=== PATIENT | female | born 1955 | race Caucasian/White ===

== ENCOUNTER 2025-07-01 10:15 | Outpatient (CLI) | payer MEDICARE, OTHER ==
--- NOTE | 2025-07-03 08:13 | RADIOLOGY REPORT ---
EXAM: MR MRI LUMBAR SPINE CLINICAL HISTORY: SPONDYLOSIS W/O MYELOPATHY OR RADICULOPATHY, LUMBAR REGION COMPARISON: None TECHNIQUE: MRI imaging of the lumbar was performed on a MRI imaging system without intravenous contrast. FINDINGS: GENERAL: Lumbar lordosis is straightened. CONUS: Conus medullaris terminates at the L1 level, demonstrates normal signal. CAUDA EQUINA: Unremarkable. OSSEOUS STRUCTURES: Deformities of the vertebral bodies T12 and L4. Anterior and mid-vertebral height loss is noted at T12 ( 30%) and L4 ( 36%). No bone- marrow edema is identified. Differential diagnosis includes chronic compression fracture versus degenerative collapse of the vertebral endplates. Marginal endplate osteophytic spurring is noted at T11-T12, T12-L1, L1-L2, L2-L3, L3-L4, L4-L5 and L5-S1. ALIGNMENT: Anterolisthesis of L5 on S1 by 3.0mm. BONE MARROW: Fatty marrow replacement. Endplate irregularity is noted at T11- T12 and L3-L4. Modic I changes at T11-12. PARASPINAL SOFT TISSUES: Minimal posterior subcutaneous fat edema. DISCS: Disc desiccation at T11-T12, L2-L3, L3-L4, L4-L5 and L5-S1. Unremarkable disc heights. T12-L1: No spinal canal or neural foraminal stenosis. Mild facet arthrosis. L1-2: No spinal canal or neural foraminal stenosis. Mild facet arthrosis. L2-3: 3mm diffuse disc bulge. No spinal canal or neural foraminal stenosis. Moderate facet arthrosis. L3-4: 4mm diffuse disc bulge. Mild spinal canal stenosis. Mild bilateral foraminal stenosis. Moderate facet arthrosis. L4-5: 3.5mm diffuse disc bulge. Moderate spinal canal stenosis. Mild bilateral foraminal stenosis. Severe facet arthrosis. L5-S1: No spinal canal or neural foraminal stenosis. Severe facet arthrosis. A cystic lesion is seen at the edge of the scan in the pelvic cavity without definite organ attribution. Recommend dedicated pelvic MRI with contrast. IMPRESSION: 1. Chronic compression fractures or degenerative collapse with anterior and mid- vertebral height loss at T12 ( 30%) and L4 ( 36%); Modic I changes at T11-T12. 2. Moderate spinal canal stenosis at L4-L5. 3. Mild spinal canal stenosis at L3-L4. 4. Anterolisthesis of L5 on S1 by 3.0 mm. 5. Indeterminate cystic lesion in the pelvic cavity; recommend dedicated pelvic MRI with contrast for further evaluation.
== END 2025-07-01 23:59 | disposition home or self-care (01) ==
LOC: MRI02 10:15
PROVIDERS: ATTEND Physical Medicine & Rehabilitation
DX: M51.360 Other intervertebral disc degeneration, lumbar region with discogenic back pain only (principal); M47.817 Spondylosis without myelopathy or radiculopathy, lumbosacral region; M43.17 Spondylolisthesis, lumbosacral region; M46.07 Spinal enthesopathy, lumbosacral region; M48.061 Spinal stenosis, lumbar region without neurogenic claudication; M47.814 Spondylosis without myelopathy or radiculopathy, thoracic region; M46.04 Spinal enthesopathy, thoracic region; M43.8X5 Other specified deforming dorsopathies, thoracolumbar region; M25.78 Osteophyte, vertebrae
CPT/HCPCS: 72148